=== PATIENT | female | born 1980 | race Caucasian/White ===

== ENCOUNTER 2023-03-27 21:24 | Emergency (ER) | payer MEDICAID ==
[~2023-03-27] VITALS: Ht 162.6 cm; Wt 117.9 kg
--- NOTE | 2023-03-27 21:30 | NUR ---
PT BIBA TO [facility] 2B.
--- NOTE | 2023-03-27 21:30 | NUR ---
AT BEDSIDE FOR EVAL.
--- NOTE | 2023-03-27 21:33 | NUR ---
Pt states she took 2 tablets of 10mg lisinopril.
[2023-03-27] MEDS ORDERED: LORAZEPAM 0.5 MG TABLET PO ONE (21:45)
[2023-03-27] MEDS ORDERED: LORAZEPAM 1 MG TABLET ONE (22:00)
[2023-03-27 22:10] LABS: HEMATOCRIT 41.1 % (31.2-41.9); MEAN CORPUSCULAR HEMOGLOBIN 31.3 uug (24.7-32.8); MEAN CORPUSCULAR VOLUME 93.9 fL (75.5-95.3); PLATELET COUNT (AUTO) 270 K/uL (179-408)
[2023-03-27 22:24] LABS: CREATININE 0.7 mg/dL (0.6-1.3); POTASSIUM 4.4 mmol/L (3.5-5.1)
--- NOTE | 2023-03-27 22:30 | NUR ---
PT UP OOB AMB TO BR WITH STEADY GAIT.
--- NOTE | 2023-03-27 23:50 | NUR ---
PT A, A AND O X 4 WITH NO CP , NO SOB WITH VSS.Patient discharged to home in stable condition. Written and verbal after care instructions given. Patient verbalizes understanding of instructions. Stressed follow up or return to ER for worsening s/s. PT AMB OUT WITH STEADY GAIT.
[2023-03-27 23:51] VITALS: BP 122/57
== END 2023-03-27 23:52 | disposition home or self-care (01) ==
LOC: EDBD 21:27 → ER 21:27
DX: I10 Essential (primary) hypertension (principal); F41.9 Anxiety disorder, unspecified; E66.01 Morbid (severe) obesity due to excess calories; Z68.41 Body mass index [BMI] 40.0-44.9, adult
CPT/HCPCS: 36415; 85025; A4663